=== PATIENT | male | born 1985 | race Caucasian/White ===

== ENCOUNTER 2019-10-08 10:06 | Emergency (ER) | payer OTHER ==
[2019-10-08 10:46] VITALS: BP 167/88; PULSE 77; RESP 19; TEMP 98.7
--- NOTE | 2019-10-08 11:15 | ED ---
ENT HPI - General Chief complaint: ENT Stated complaint: Cough, sore throat Time Seen by Provider: 10/08/19 10:58 Source: patient Mode of arrival: ambulatory Limitations: no limitations - History of Present Illness Initial comments: Well appearing 34yo mle presenting for cough, sore throat and fever x 3 days. Patient states that Saturday morning he began experiencing fever or sore throat cough. Patient states the symptoms have been persistent today. Patient is concerned that he was developing pneumonia as he has had this in the past. Patient denies any chest pain shortness of breath denies any nausea vomiting or diarrhea. Patient denies any difficulty swallowing or breathing remaining review of systems negative upon arrival patient appears well no signs of acute distress afebrile. Last dose of Advil was taken at 7 AM. - Related Data Allergies Allergy/AdvReac Type Severity Reaction Status Date / Time No Known Allergies Allergy Verified 10/08/19 10:46 Review of Systems ROS Statement: Those systems with pertinent positive or pertinent negative responses have been documented in the HPI. ROS Other: All systems not noted in ROS Statement are negative. Past Medical History Past Medical History: Hyperlipidemia, Hypertension History of Any Multi-Drug Resistant Organisms: None Reported Past Surgical History: Coronary Bypass/CABG Additional Past Surgical History / Comment(s): open heart surgery 2017 Past Psychological History: No Psychological Hx Reported Smoking Status: Current every day smoker Past Alcohol Use History: Occasional Past Drug Use History: None Reported General Exam - General Exam Comments Initial Comments: General: The patient is awake and alert, in no distress, and does not appear acutely ill. Eye: +3 mm pupils are equal, round and reactive to light, extra-ocular movements are intact. No nystagmus. There is normal conjunctiva bilaterally. No signs of icterus. No photophobia Ears, nose, mouth and throat: There are moist mucous membranes and no oral lesions. Oropharynx was not erythematous there is no tonsillar enlargement exudates or lesions. Uvula midline. Tympanic membranes are not erythematous or is no effusions bulging or retraction. No tenderness to palpation of the mastoid. No anterior cervical lymphadenopathy. Rhinorrhea, clear and bilateral nares. No tripoding, no drooling. Neck: The neck is supple, there is no tenderness or JVD. No nuchal rigidity Cardiovascular: There is a regular rate and rhythm. No murmur, rub or gallop is appreciated. Respiratory: Lungs are clear to auscultation, respirations are non-labored, breath sounds are equal. No wheezes, stridor, rales, or rhonchi. No retractions or abdominal breathing. Gastrointestinal: Soft, non-distended, non-tender abdomen without masses or organomegaly noted. There is no rebound or guarding present. Bowel sounds are unremarkable. Musculoskeletal: Normal ROM, no tenderness. Strength 5/5. Sensation intact. Radial pulses equal bilaterally 2+. Neurological: A&O x 3. CN II-XII intact grossly, There are no obvious motor or sensory deficits. Coordination appears grossly intact. Speech appears normal, no muffling. Skin: Skin is warm and dry and no rashes or lesions are noted. No extremity edema Psychiatric: Cooperative Limitations: no limitations Course Vital Signs 10/08/19 10:43 Temperature 98.7 F Pulse Rate 77 Respiratory 19 Rate Blood Pressure 167/88 O2 Sat by Pulse 98 Oximetry Medical Decision Making - Medical Decision Making 34-year-old male presents today for chief complaint of cough sore throat and fevers. No fever on arrival patient appears nontoxic well. Lungs clear. Abdomen benign. Chest x-ray revealed no focal consolidations however the patient was influenza B-positive. Patient is out of the 48 hour window for Tamiflu. Patient is not immunocompromised at this time I feel he is stable for discharge with outpatient primary care follow-up with him parameters and symptom control as discussed patient verbalizes understanding and was discharged appearing well - Lab Data Lab Results 10/08/19 10/08/19 Range/Units 11:15 11:15 Influenza Type A RNA Not Detected (Not Detectd) Influenza Type B (PCR) Detected H (Not Detectd) Group A Strep Rapid Negative (Negative) Disposition Clinical Impression: Influenza B Disposition: HOME SELF-CARE Condition: Good Instructions (If sedation given, give patient instructions): Influenza (ED) Additional Instructions: Please use medication as discussed. Please follow-up with family doctor in the next 2 days.. Please return to emergency room if the symptoms increase or worsen or for any other concerns. Is patient prescribed a controlled substance at d/c from ED?: No Referrals: None,Stated [Primary Care Provider] - 1-2 days Time of Disposition: 12:14
--- NOTE | 2019-10-08 11:33 | XR ---
EXAMINATION TYPE: XR chest 2V DATE OF EXAM: 10/08/2019 COMPARISON: None HISTORY: 34-year-old male with cough and chills TECHNIQUE: PA and lateral views FINDINGS: Median sternotomy wires are present with post-CABG clips. Heart upper limits of normal in size. Mild interstitial prominence. No consolidation or pleural effusion. IMPRESSION: Generalized interstitial prominence could reflect bronchitis, asthma, or atypical pneumonias. No foca l infiltrate.
== END 2019-10-08 12:22 | disposition home or self-care (01) ==
LOC: EC 10:06
DX: J10.1 Influenza due to other identified influenza virus with other respiratory manifestations (principal); F17.200 Nicotine dependence, unspecified, uncomplicated; Z95.1 Presence of aortocoronary bypass graft
CPT/HCPCS: 71046; 87081; 87430; 87502; 99283

== ENCOUNTER 2020-03-16 10:29 | Emergency (ER) | payer OTHER ==
[2020-03-16 10:40] VITALS: TEMP 98.8
--- NOTE | 2020-03-16 11:01 | ED ---
General Adult HPI - General Chief complaint: Extremity Problem,Nontraumatic Stated complaint: swelling in legs & feet Time Seen by Provider: 03/16/20 10:46 Source: patient Mode of arrival: ambulatory Limitations: no limitations - History of Present Illness Initial comments: 34 year-old male patient presents to the emergency department today for evaluation of lower extremity swelling and erythema. Patient does have a past medical history significant for hypertension, diabetes, coronary artery disease, he has not been on medication for the last 6 months due to insurance issues. He has had a CABG. Patient states that over the last week he has been having pain and swelling in the lower extremities. States that it will go down when he lies down but increases with standing for long periods. Denies any chest pain or trouble breathing. He does smoke cigarettes. Occasionally drinks alcohol. States he does not check his blood sugar. Patient denies any recent rash, fever, chills, cough, abdominal pain, nausea, vomiting, diarrhea, constipation, back pain, numbness, tingling, dizziness, weakness, hematuria, dysuria, urinary urgency, urinary frequency, headache, visual changes, or any other complaints. - Related Data Previous Rx's Medication Instructions Recorded Furosemide [Lasix] 20 mg PO DAILY #3 tablet 03/16/20 Allergies Allergy/AdvReac Type Severity Reaction Status Date / Time No Known Allergies Allergy Verified 03/16/20 11:41 Review of Systems ROS Statement: Those systems with pertinent positive or pertinent negative responses have been documented in the HPI. ROS Other: All systems not noted in ROS Statement are negative. Past Medical History Past Medical History: Diabetes Mellitus, Hyperlipidemia, Hypertension History of Any Multi-Drug Resistant Organisms: None Reported Past Surgical History: Coronary Bypass/CABG Additional Past Surgical History / Comment(s): open heart surgery 2017 Past Psychological History: No Psychological Hx Reported Smoking Status: Current every day smoker Past Alcohol Use History: Occasional Past Drug Use History: None Reported General Exam Limitations: no limitations General appearance: alert, in no apparent distress, other (This is a well- developed, well-nourished adult male patient in no acute distress. Vital signs upon presentation are temperature 98.8F, pulse 88, respirations 18, blood pressure 203/120, pulse ox 97% on room air.) Eye exam: Present: normal appearance, PERRL, EOMI. Absent: scleral icterus, conjunctival injection, periorbital swelling ENT exam: Present: normal exam, normal oropharynx, mucous membranes moist Respiratory exam: Present: normal lung sounds bilaterally. Absent: respiratory distress, wheezes, rales, rhonchi, stridor Cardiovascular Exam: Present: regular rate, normal rhythm, normal heart sounds. Absent: systolic murmur, diastolic murmur, rubs, gallop, clicks GI/Abdominal exam: Present: soft, normal bowel sounds. Absent: distended, tenderness, guarding, rebound, rigid Extremities exam: Present: full ROM, normal capillary refill, other (Edema noted to the bilateral lower legs and feet. There is mild erythema anteriorly. His skin is otherwise pink, warm, dry. Cap refills less than 3 seconds. Pedal posterior tibial pulses are 2+ and equal bilaterally.). Absent: tenderness, pedal edema, joint swelling, calf tenderness Neurological exam: Present: alert, oriented X3, CN II-XII intact Psychiatric exam: Present: normal affect, normal mood Skin exam: Present: warm, dry, intact, normal color. Absent: rash Course Vital Signs 03/16/20 03/16/20 10:37 12:01 Temperature 98.8 F Pulse Rate 88 86 Respiratory 18 16 Rate Blood Pressure 203/120 148/87 O2 Sat by Pulse 97 99 Oximetry Medical Decision Making - Medical Decision Making 34 year-old male patient presents to the emergency department today for evaluation of bilateral lower extremity swelling. Physical examination did reveal lower leg and foot edema with some mild erythema over the dorsal aspect of the bilateral lower legs. Patient denied dyspnea, lung sounds are clear, vital signs within normal ranges including oxygen saturation. Labs reviewed and were unremarkable. Patient is given ROB hose to wear especially with standing for prolonged periods. He is educated regarding leg elevation, sodium reduction, and follow-up with his primary care physician. We will give 3 days of Lasix. He is instructed to follow [facility] for [facility] evaluation and review of his medications. Return parameters were discussed in detail. He verbalizes understanding and agrees with this plan. - Lab Data Result diagrams: 03/16/20 11:04 03/16/20 11:04 Lab Results 03/16/20 03/16/20 03/16/20 Range/Units 11:04 11:04 11:04 WBC 7.9 (3.8-10.6) k/uL RBC 4.57 (4.30-5.90) m/uL Hgb 14.1 (13.0-17.5) gm/dL Hct 43.2 (39.0-53.0) % MCV 94.6 (80.0-100.0) fL MCH 31.0 (25.0-35.0) pg MCHC 32.7 (31.0-37.0) g/dL RDW 13.3 (11.5-15.5) % Plt Count 283 (150-450) k/uL Neutrophils % 62 % Lymphocytes % 29 % Monocytes % 3 % Eosinophils % 4 % Basophils % 0 % Neutrophils # 4.9 (1.3-7.7) k/uL Lymphocytes # 2.3 (1.0-4.8) k/uL Monocytes # 0.3 (0-1.0) k/uL Eosinophils # 0.3 (0-0.7) k/uL Basophils # 0.0 (0-0.2) k/uL PT 9.7 (9.0-12.0) sec INR 0.9 (<1.2) APTT 21.9 L (22.0-30.0) sec Sodium (137-145) mmol/L Potassium (3.5-5.1) mmol/L Chloride (98-107) mmol/L Carbon Dioxide (22-30) mmol/L Anion Gap mmol/L BUN (9-20) mg/dL Creatinine (0.66-1.25) mg/dL Est GFR (CKD-EPI)AfAm (>60 ml/min/1.73 sqM) Est GFR (CKD-EPI)NonAf (>60 ml/min/1.73 sqM) Glucose (74-99) mg/dL Calcium (8.4-10.2) mg/dL Total Bilirubin (0.2-1.3) mg/dL AST (17-59) U/L ALT (4-49) U/L Alkaline Phosphatase (38-126) U/L Total Protein (6.3-8.2) g/dL Albumin (3.5-5.0) g/dL Urine Color Yellow Urine Appearance Clear (Clear) Urine pH 7.0 (5.0-8.0) Ur Specific Pitts 1.023 (1.001-1.035) Urine Protein 1+ H (Negative) Urine Glucose (UA) Negative (Negative) Urine Ketones Negative (Negative) Urine Blood Negative (Negative) Urine Nitrite Negative (Negative) Urine Bilirubin Negative (Negative) Urine Urobilinogen <2.0 (<2.0) mg/dL Ur Leukocyte Esterase Trace H (Negative) Urine RBC 2 (0-5) /hpf Urine WBC 5 (0-5) /hpf Ur Squamous Epith Cells 2 (0-4) /hpf Urine Bacteria Rare H (None) /hpf Urine Mucus Occasional H (None) /hpf 03/16/20 Range/Units 11:04 WBC (3.8-10.6) k/uL RBC (4.30-5.90) m/uL Hgb (13.0-17.5) gm/dL Hct (39.0-53.0) % MCV (80.0-100.0) fL MCH (25.0-35.0) pg MCHC (31.0-37.0) g/dL RDW (11.5-15.5) % Plt Count (150-450) k/uL Neutrophils % % Lymphocytes % % Monocytes % % Eosinophils % % Basophils % % Neutrophils # (1.3-7.7) k/uL Lymphocytes # (1.0-4.8) k/uL Monocytes # (0-1.0) k/uL Eosinophils # (0-0.7) k/uL Basophils # (0-0.2) k/uL PT (9.0-12.0) sec INR (<1.2) APTT (22.0-30.0) sec Sodium 141 (137-145) mmol/L Potassium 4.0 (3.5-5.1) mmol/L Chloride 106 (98-107) mmol/L Carbon Dioxide 25 (22-30) mmol/L Anion Gap 10 mmol/L BUN 13 (9-20) mg/dL Creatinine 0.82 (0.66-1.25) mg/dL Est GFR (CKD-EPI)AfAm >90 (>60 ml/min/1.73 sqM) Est GFR (CKD-EPI)NonAf >90 (>60 ml/min/1.73 sqM) Glucose 102 H (74-99) mg/dL Calcium 9.8 (8.4-10.2) mg/dL Total Bilirubin 0.3 (0.2-1.3) mg/dL AST 39 (17-59) U/L ALT 39 (4-49) U/L Alkaline Phosphatase 122 (38-126) U/L Total Protein 8.1 (6.3-8.2) g/dL Albumin 4.6 (3.5-5.0) g/dL Urine Color Urine Appearance (Clear) Urine pH (5.0-8.0) Ur Specific Pitts (1.001-1.035) Urine Protein (Negative) Urine Glucose (UA) (Negative) Urine Ketones (Negative) Urine Blood (Negative) Urine Nitrite (Negative) Urine Bilirubin (Negative) Urine Urobilinogen (<2.0) mg/dL Ur Leukocyte Esterase (Negative) Urine RBC (0-5) /hpf Urine WBC (0-5) /hpf Ur Squamous Epith Cells (0-4) /hpf Urine Bacteria (None) /hpf Urine Mucus (None) /hpf Disposition Clinical Impression: Lower extremity edema Disposition: HOME SELF-CARE Condition: Good Instructions (If sedation given, give patient instructions): Leg Edema (ED) Additional Instructions: Keep leg elevated as discussed. Wear ROB hose especially when up and ambulate in. Follow-up with primary care physician for recheck in 1-2 days. Return to the emergency department immediately for any new, worsening, or concerning symptoms. Prescriptions: Furosemide [Lasix] 20 mg PO DAILY #3 tablet Is patient prescribed a controlled substance at d/c from ED?: No Referrals: [facility] [NON-STAFF] - 1-2 days Time of Disposition: 12:23
[2020-03-16 11:14] LABS: Basophils % (A) 0 %; Eosinophils # (A) 0.3 k/uL (0-0.7); Eosinophils % (A) 4 %; HCT 43.2 % (39.0-53.0); HGB 14.1 gm/dL (13.0-17.5); Lymphocytes # (A) 2.3 k/uL (1.0-4.8); Lymphocytes % (A) 29 %; MCHC 32.7 g/dL (31.0-37.0); MCV 94.6 fL (80.0-100.0); Mean Platelet Volume 7.9; Monocytes # (A) 0.3 k/uL (0-1.0); Monocytes % (A) 3 %; Neutrophils # (A) 4.9 k/uL (1.3-7.7); Neutrophils % (A) 62 %; Platelet Count 283 k/uL (150-450); RBC 4.57 m/uL (4.30-5.90); RDW 13.3 % (11.5-15.5); WBC 7.9 k/uL (3.8-10.6)
[2020-03-16 11:25] LABS: Appearance,Urine Clear (Clear); Bacteria,Urine Rare /hpf; Bilirubin,Urine Negative (Negative); Blood,Urine Negative (Negative); Color,Urine Yellow; Glucose,Urine (UA) Negative (Negative); Ketones,Urine Negative (Negative); Leukocyte Esterase,Urine Trace (Negative); Mucus,Urine Occasional /hpf; Nitrite,Urine Negative (Negative); Protein,Urine 1+ (Negative); RBC,Urine 2 /hpf (0-5); Specific Gravity,Urine 1.023 (1.001-1.035); Squamous Epithelial Cell,Urine 2 /hpf (0-4); Urobilinogen,Urine <2.0 mg/dL (<2.0); WBC,Urine 5 /hpf (0-5)
[2020-03-16 11:26] LABS: INR 0.9 (<1.2); Prothrombin Time 9.7 sec (9.0-12.0)
[2020-03-16 11:28] LABS: ALT 39 U/L (4-49); AST 39 U/L (17-59); African American GFR (CKD) >90 (>60 ml/min/1.73 sqM); Albumin 4.6 g/dL (3.5-5.0); Alkaline Phosphatase 122 U/L (38-126); Anion Gap 10 mmol/L; Blood Urea Nitrogen 13 mg/dL (9-20); Calcium 9.8 mg/dL (8.4-10.2); Carbon Dioxide 25 mmol/L (22-30); Chloride 106 mmol/L (98-107); Glucose 102 mg/dL (74-99); Non-African American GFR(CKD) >90 (>60 ml/min/1.73 sqM); Sodium 141 mmol/L (137-145); Total Bilirubin 0.3 mg/dL (0.2-1.3); Total Protein 8.1 g/dL (6.3-8.2)
[2020-03-16 11:34] LABS: Partial Thromboplastin Time 21.9 sec (22.0-30.0)
[2020-03-16 12:02] VITALS: BP 148/87; PULSE 86; RESP 16
[2020-03-16] MEDS ORDERED: FUROSEMIDE 40 MG TAB PO STA (12:23)
== END 2020-03-16 12:46 | disposition home or self-care (01) ==
LOC: EC 10:29
DX: R60.0 Localized edema (principal); L53.9 Erythematous condition, unspecified; I10 Essential (primary) hypertension; E11.9 Type 2 diabetes mellitus without complications; I25.10 Atherosclerotic heart disease of native coronary artery without angina pectoris; F17.210 Nicotine dependence, cigarettes, uncomplicated; Z95.1 Presence of aortocoronary bypass graft
CPT/HCPCS: 36415; 80053; 81001; 85025; 85610; 85730; 99283

== ENCOUNTER 2020-11-16 16:07 | Emergency (ER) | payer OTHER ==
--- NOTE | 2020-11-16 16:30 | ED ---
URI HPI - General Chief Complaint: Upper Respiratory Infection Stated Complaint: cough, headache Time Seen by Provider: 11/16/20 16:18 Source: patient Mode of arrival: ambulatory Limitations: no limitations - History of Present Illness Initial Comments: 35-year-old male presents to emergency Department with a chief complaint of cough and a sore throat. States the symptoms have been out when for the past 5 days. States initially developed some sinus congestion with a sore throat. Patient also reports developing a nonproductive cough. states he is a smoker but stopped about 8 days ago.patient also reports history of hypertension and he is currently being treated with 20 mg of lisinopril. Patient states his primary care physician is well aware of the situation and he began taking the lisinopril 3 days ago. Patient denies any abdominal pain, urinary difficulties, hematuria, headaches orchest pain or shortness of breath. Denies any night sweats fevers or chills. Denies exposure to covid-19ld. States he was tested 2 days ago for Covid and it was negative. - Related Data Home Medications Medication Instructions Recorded Confirmed Lisinopril-Hctz 20-12.5 mg 1 tab PO HS 11/16/20 11/16/20 [Zestoretic 20-12.5] Allergies Allergy/AdvReac Type Severity Reaction Status Date / Time No Known Allergies Allergy Verified 11/16/20 16:46 Review of Systems ROS Statement: Those systems with pertinent positive or pertinent negative responses have been documented in the HPI. ROS Other: All systems not noted in ROS Statement are negative. Past Medical History Past Medical History: Diabetes Mellitus, Hyperlipidemia, Hypertension History of Any Multi-Drug Resistant Organisms: None Reported Past Surgical History: Coronary Bypass/CABG Additional Past Surgical History / Comment(s): open heart surgery 2017 Past Psychological History: No Psychological Hx Reported Smoking Status: Former smoker Past Alcohol Use History: Occasional Past Drug Use History: None Reported General Exam Limitations: no limitations General appearance: alert, in no apparent distress, obese Head exam: Present: atraumatic, normocephalic, normal inspection Eye exam: Present: normal appearance, PERRL, EOMI Pupils: Present: normal accommodation ENT exam: Present: normal exam, normal oropharynx (no tonsillar erythema, exudates or tonsillar enlargement. Uvula midline. No changes to voice.), mucous membranes moist, TM's normal bilaterally, normal external ear exam Neck exam: Present: normal inspection, full ROM. Absent: tenderness, meningismus, lymphadenopathy Respiratory exam: Present: normal lung sounds bilaterally. Absent: respiratory distress, wheezes, rales Cardiovascular Exam: Present: regular rate, normal rhythm, normal heart sounds Extremities exam: Present: normal inspection, full ROM Back exam: Present: normal inspection, full ROM Neurological exam: Present: alert, oriented X3 Psychiatric exam: Present: normal affect, normal mood Skin exam: Present: warm, dry, intact, normal color Course Vital Signs 11/16/20 11/16/20 11/16/20 16:10 17:30 18:00 Temperature 98.7 F Pulse Rate 92 70 84 Respiratory 16 18 20 Rate Blood Pressure 188/134 180/112 180/87 O2 Sat by Pulse 98 97 98 Oximetry 11/16/20 18:25 Temperature 98.3 F Pulse Rate 88 Respiratory 20 Rate Blood Pressure 177/80 O2 Sat by Pulse 99 Oximetry Medical Decision Making - Medical Decision Making 35-year-old male presents emergency department with chief complaint of cough and sore throat. On physical examination, patient is not in any respiratory distress. His initial blood pressure is 184/134. She does not have any chest pain or shortness of breath. Chest x-ray is unremarkable. I do suspect an upper respiratory infection and the cough is likely secondary to postnasal drip. Patient was offered laboratoryand imaging workup due to his elevated blood pressure, he declined. I also offered him antihypertensive medication in order to decrease it. He was compliant. I gave him 20 mg of hydralazine. The patient was observed in the emergency department and he continued to be a symptom that he. His blood pressure did improve to 177/80. I advised him to follow up with his primary care physician after one week in order to adjust his blood pressure medication. Return parameters were thoroughly discussed patient was under sinning agreeable. Case discussed with physician. Disposition Clinical Impression: Upper respiratory infection, Postnasal drip Disposition: HOME SELF-CARE Condition: Stable Instructions (If sedation given, give patient instructions): Upper Respiratory Infection (ED) Additional Instructions: take [id number] Zyrtec. Return to emergency department if symptoms worsen. Follow up with a primary care physician. Continue taking your blood pressure medication. Is patient prescribed a controlled substance at d/c from ED?: No Referrals: None,Stated [Primary Care Provider] - 1-2 days Time of Disposition: 17:17
[2020-11-16] MEDS ORDERED: SULFAMETHOX-TMP 800-160MG 1 EACH TAB PO STA (16:32)
--- NOTE | 2020-11-16 17:14 | XR ---
EXAMINATION TYPE: XR chest 2V DATE OF EXAM: 11/16/2020 COMPARISON: 10/08/2019 HISTORY: 10/08/2019 TECHNIQUE: 2 views FINDINGS: There is no heart failure nor confluent pneumonic infiltrate. Costophrenic angles are clear . There are sternal wires. Bony thorax is intact. IMPRESSION: No active cardiopulmonary disease. Normal heart.
[2020-11-16] MEDS ORDERED: hydrALAZINE HCL 20 MG/ML 1 ML VIAL IM STA (17:29)
[2020-11-16 18:14] VITALS: RESP 20
[2020-11-16 18:41] VITALS: BP 177/80; PULSE 88; TEMP 98.3
== END 2020-11-16 18:25 | disposition home or self-care (01) ==
LOC: EC 16:07
DX: J06.9 Acute upper respiratory infection, unspecified (principal); R09.82 Postnasal drip; I10 Essential (primary) hypertension; Z79.899 Other long term (current) drug therapy; Z87.891 Personal history of nicotine dependence
CPT/HCPCS: 71046; 99283; 96372; J0360

== ENCOUNTER 2022-07-10 10:52 | Emergency (ER) | payer OTHER ==
[2022-07-10 12:45] LABS: Basophils % (A) 0 %; Eosinophils # (A) 0.2 k/uL (0-0.7); Eosinophils % (A) 2 %; HCT 39.6 % (39.0-53.0); HGB 13.5 gm/dL (13.0-17.5); Lymphocytes # (A) 2.4 k/uL (1.0-4.8); Lymphocytes % (A) 26 %; MCH 29.9 pg (25.0-35.0); MCHC 33.9 g/dL (31.0-37.0); Mean Platelet Volume 8.8; Monocytes # (A) 0.3 k/uL (0-1.0); Monocytes % (A) 3 %; Neutrophils # (A) 6.3 k/uL (1.3-7.7); Neutrophils % (A) 67 %; Platelet Count 251 k/uL (150-450); RDW 14.5 % (11.5-15.5); WBC 9.4 k/uL (3.8-10.6)
--- NOTE | 2022-07-10 12:45 | ED ---
General Adult HPI - General Chief complaint: Upper Respiratory Infection Stated complaint: congestion Time Seen by Provider: 07/10/22 12:06 Source: patient Mode of arrival: ambulatory Limitations: no limitations - History of Present Illness Initial comments: This patient is a 36-year-old man with history of previous CAD status post CABG who states he has "had Covid symptoms for 9 days," and by this he means congestion and cough and some postnasal drip. He has taken 2 home Covid tests which have come back negative. The patient states that he is here because he was supposed to go back to work on Saturday but is continuing to have symptoms. The patient denies chest pain, diaphoresis, dyspnea, leg pain or swelling. Onset/Timin -: days(s) Severity scale (1-10): 0 Consistency: constant Improves with: none Worsens with: none Associated Symptoms: cough Treatments Prior to Arrival: none - Related Data Previous Rx's Medication Instructions Recorded Lisinopril/Hydrochlorothiazide 1 tab PO DAILY #30 tab 07/10/22 [Zestoretic 20-12.5] Allergies Allergy/AdvReac Type Severity Reaction Status Date / Time No Known Allergies Allergy Verified 07/10/22 14:04 Review of Systems ROS Statement: Those systems with pertinent positive or pertinent negative responses have been documented in the HPI. ROS Other: All systems not noted in ROS Statement are negative. Constitutional: Denies: fever, chills ENT: Reports: congestion. Denies: throat pain Respiratory: Reports: cough. Denies: dyspnea, wheezes, hemoptysis Cardiovascular: Denies: chest pain, palpitations, orthopnea, edema, syncope Gastrointestinal: Denies: abdominal pain, vomiting, diarrhea Genitourinary: Denies: dysuria, hematuria Musculoskeletal: Denies: back pain Skin: Denies: rash Neurological: Denies: headache, weakness Past Medical History Past Medical History: Diabetes Mellitus, Hyperlipidemia, Hypertension History of Any Multi-Drug Resistant Organisms: None Reported Past Surgical History: Coronary Bypass/CABG Additional Past Surgical History / Comment(s): open heart surgery 2017 Past Psychological History: No Psychological Hx Reported Smoking Status: Current every day smoker Past Alcohol Use History: Occasional Past Drug Use History: None Reported General Exam Limitations: no limitations General appearance: alert, in no apparent distress Head exam: Present: atraumatic, normocephalic Eye exam: Present: normal appearance. Absent: scleral icterus, conjunctival in jection Neck exam: Present: normal inspection Respiratory exam: Present: normal lung sounds bilaterally. Absent: respiratory distress, wheezes, rales, rhonchi, stridor, accessory muscle use, decreased breath sounds, prolonged expiratory Cardiovascular Exam: Present: regular rate, normal rhythm, normal heart sounds. Absent: systolic murmur, diastolic murmur, rubs, gallop GI/Abdominal exam: Present: soft. Absent: distended, tenderness, guarding, rebound, rigid, mass Extremities exam: Present: normal inspection, normal capillary refill. Absent: pedal edema, calf tenderness Back exam: Present: normal inspection. Absent: CVA tenderness (R), CVA tenderness (L) Neurological exam: Present: alert Skin exam: Present: warm, dry, intact, normal color. Absent: rash Course Vital Signs 07/10/22 07/10/22 07/10/22 11:10 12:20 13:55 Temperature 98.8 F Pulse Rate 100 71 Respiratory 20 18 18 Rate Blood Pressure 248/146 195/121 O2 Sat by Pulse 97 98 Oximetry 07/10/22 14:20 Temperature 98.1 F Pulse Rate 81 Respiratory 18 Rate Blood Pressure 186/115 O2 Sat by Pulse 97 Oximetry EKG Findings - EKG Results: EKG: interpreted by ERVIN, sinus rhythm (Rate 87 bpm), normal axis, normal ST/T - [place], [place], Hypertrophy, ST Abn: AV and intraventricular conduction: intraventricular conduction delay Medical Decision Making - Medical Decision Making This patient is a 36-year-old man here to have evaluation of cough. The workup does reveal what appears to be element of congestive heart failure. This would be a new diagnosis for him. I did recommend that he be admitted to have echocardiogram cardiology consultation, serial cardiac enzymes as his first troponin is elevated. The patient's declines to stay. He states he is not expressing any chest pain and he wants to try medication and follow-up. I did strongly recommend against that. Patient understands that he may worsen. There may be cardiac disability or . Patient will return should he be worse in anyway or if there is no improvement. - Lab Data Result diagrams: 07/10/22 12:34 07/10/22 12:34 Lab Results 09/27/22 09/27/22 09/27/22 Range/Units 11:20 12:34 12:34 WBC 9.4 (3.8-10.6) k/uL RBC 4.50 (4.30-5.90) m/uL Hgb 13.5 (13.0-17.5) gm/dL Hct 39.6 (39.0-53.0) % MCV 88.0 (80.0-100.0) fL MCH 29.9 (25.0-35.0) pg MCHC 33.9 (31.0-37.0) g/dL RDW 14.5 (11.5-15.5) % Plt Count 251 (150-450) k/uL MPV 8.8 Neutrophils % 67 % Lymphocytes % 26 % Monocytes % 3 % Eosinophils % 2 % Basophils % 0 % Neutrophils # 6.3 (1.3-7.7) k/uL Lymphocytes # 2.4 (1.0-4.8) k/uL Monocytes # 0.3 (0-1.0) k/uL Eosinophils # 0.2 (0-0.7) k/uL Basophils # 0.0 (0-0.2) k/uL Sodium 141 (137-145) mmol/L Potassium 3.3 L (3.5-5.1) mmol/L Chloride 99 (98-107) mmol/L Carbon Dioxide 30 (22-30) mmol/L Anion Gap 12 mmol/L BUN 17 (9-20) mg/dL Creatinine 1.13 (0.66-1.25) mg/dL Est GFR (CKD-EPI)AfAm >90 (>60 ml/min/1.73 sqM) Est GFR (CKD-EPI)NonAf 82 (>60 ml/min/1.73 sqM) Glucose 129 H (74-99) mg/dL Calcium 9.4 (8.4-10.2) mg/dL Troponin I (0.000-0.034) ng/mL NT-Pro-B Natriuret Pep pg/mL Coronavirus (PCR) Not Detected (Not Detectd) 07/10/22 07/10/22 Range/Units 12:34 12:34 WBC (3.8-10.6) k/uL RBC (4.30-5.90) m/uL Hgb (13.0-17.5) gm/dL Hct (39.0-53.0) % MCV (80.0-100.0) fL MCH (25.0-35.0) pg MCHC (31.0-37.0) g/dL RDW (11.5-15.5) % Plt Count (150-450) k/uL MPV Neutrophils % % Lymphocytes % % Monocytes % % Eosinophils % % Basophils % % Neutrophils # (1.3-7.7) k/uL Lymphocytes # (1.0-4.8) k/uL Monocytes # (0-1.0) k/uL Eosinophils # (0-0.7) k/uL Basophils # (0-0.2) k/uL Sodium (137-145) mmol/L Potassium (3.5-5.1) mmol/L Chloride (98-107) mmol/L Carbon Dioxide (22-30) mmol/L Anion Gap mmol/L BUN (9-20) mg/dL Creatinine (0.66-1.25) mg/dL Est GFR (CKD-EPI)AfAm (>60 ml/min/1.73 sqM) Est GFR (CKD-EPI)NonAf (>60 ml/min/1.73 sqM) Glucose (74-99) mg/dL Calcium (8.4-10.2) mg/dL Troponin I 0.095 H* (0.000-0.034) ng/mL NT-Pro-B Natriuret Pep 2770 pg/mL Coronavirus (PCR) (Not Detectd) Disposition Clinical Impression: Congestive heart failure, Elevated troponin I level Disposition: Left Against Medical Advice Condition: Undetermined Prescriptions: Lisinopril/Hydrochlorothiazide [Zestoretic 20-12.5] 1 tab PO DAILY #30 tab Is patient prescribed a controlled substance at d/c from ED?: No Referrals: None,Stated [Primary Care Provider] - 1-2 days Leland Hayes MD [STAFF PHYSICIAN] - 1-2 days
--- NOTE | 2022-07-10 12:58 | XR ---
EXAMINATION TYPE: XR chest 2V DATE OF EXAM: 07/10/2022 COMPARISON: 11/16/2020 HISTORY: 36-year-old male cough and congestion TECHNIQUE: PA and lateral views FINDINGS: Median sternotomy wires and post-CABG clips. Heart mildly enlarged. Interstitial prominence is unchan ged. Hazy densities relating to large body habitus. No consolidation or pleural effusion. IMPRESSION: Mild cardiomegaly, postoperative changes, and other chronic changes. No definite acute process.
[2022-07-10 13:09] LABS: African American GFR (CKD) >90 (>60 ml/min/1.73 sqM); Anion Gap 12 mmol/L; Blood Urea Nitrogen 17 mg/dL (9-20); Calcium 9.4 mg/dL (8.4-10.2); Carbon Dioxide 30 mmol/L (22-30); Chloride 99 mmol/L (98-107); Glucose 129 mg/dL (74-99); Non-African American GFR(CKD) 82 (>60 ml/min/1.73 sqM); Potassium 3.3 mmol/L (3.5-5.1); Sodium 141 mmol/L (137-145)
[2022-07-10 13:56] VITALS: RESP 18
[2022-07-10] MEDS ORDERED: POTASSIUM CHLORIDE ER 20 MEQ TAB.ER PO STA (13:57)
[2022-07-10] MEDS ORDERED: lisinopriL 20 MG TAB PO STA (13:58)
[2022-07-10] MEDS ORDERED: FUROSEMIDE 10 MG/ML 4 ML VIAL IV STA (14:05)
[2022-07-10 14:55] VITALS: BP 219/143; PULSE 83; TEMP 98.6
== END 2022-07-10 14:59 | disposition left against medical advice (07) ==
LOC: EC 10:52
DX: I50.9 Heart failure, unspecified (principal); R77.8 Other specified abnormalities of plasma proteins; E11.9 Type 2 diabetes mellitus without complications; E78.5 Hyperlipidemia, unspecified; I10 Essential (primary) hypertension; F17.200 Nicotine dependence, unspecified, uncomplicated
CPT/HCPCS: 36415; 93005; 83880; 80048; 84484; 85025; 87635; 71046; 99284; 96374; J1940